=== PATIENT | male | born 1990 | race Caucasian/White ===

== ENCOUNTER 2016-07-24 02:03 | Observation (INO) ==
[2016-07-24] MEDS ORDERED: Ketorolac 30 MG/ML VIAL IVP ONE (03:34)
--- NOTE | 2016-07-24 03:41 | Emergency Department Note ---
Disposition Clinical Impression: Abdominal pain Qualifiers: Abdominal location: right lower quadrant Qualified Code(s): R10.31 - Right lower quadrant pain Disposition: Still a Patient Condition: Good Referrals: Allison Thompson CNP [Primary Care Provider] - Forms: Work/School Release, ED Satisfaction Letter Abdominal Pain HPI - General Chief Complaint: ED Abdominal Pain Stated Complaint: cholecystitis-was here Sat/abd pain Time Seen by Provider: 07/24/16 03:09 Source: patient Nursing Notes Reviewed: Yes Vital Signs Reviewed: Yes - History of Present Illness HPI Narrative: 25-year-old male smoker complains of right lower quadrant pain. He states he has been having this pain for some time, was actually evaluated earlier in the month and had a CT scan and was suggested to have a follow-up outpatient ultrasound. He had this 2 days ago and at the time of the imaging radiology had recommended that he be evaluated at the emergency department. He had a workup that time which resulted in a recommendation for a MRI and MRCP however patient had wanted to leave because he had to attend his dogs at home. He presents tonight with worsening pain. He mentions he has some chronic back pain today, but denies any bowel or bladder issues, weakness, numbness, tingling He states he is agreeable for further workup and treatment. He states he has a chronic history of pain which he is prescribed Suboxone 4. He denies any fevers , nausea, vomiting, constipation. Past surgical history includes appendectomy. Pain Scale: 9 - Related Data Home Medications Medication Instructions Recorded Confirmed Buprenorphine HCl/Naloxone HCl 1 each SL DAILY 07/24/16 07/24/16 [Suboxone 4 mg-1 mg Sl Film] Previous Rx's Medication Instructions Recorded CloNIDine [Catapres] 0.2 mg EP Q8H PRN #10 mls 06/23/15 Ketoprofen 75 mg PO TID PRN #20 capsule 07/16/16 Allergies Allergy/AdvReac Type Severity Reaction Status Date / Time Cyclobenzaprine Allergy Severe Hives Verified 07/24/16 02:25 [From Flexeril] All systems ED: reviewed and negative except as stated. Constitutional: Denies: fever, chills ENT ED: Denies: ear pain Cardiovascular: Denies: chest pain Respiratory: Denies: cough, dyspnea, wheezes Gastrointestinal: Reports: as per HPI. Denies: nausea, vomiting, diarrhea, constipation Abdominal Pain PMH - Past Medical History Medical history: Reports: other Male Surgical History: Reports: appendectomy Psychiatric history: Reports: anxiety, bipolar, depression - Social History Smoking status: Current every day smoker Alcohol use: Reports: none Drug use: Reports: none Physical Exam - General Limitations: no limitations General appearance: alert - Head Head exam: normocephalic - Eye Eye exam: Present: normal appearance, EOMI - ENT ENT exam: mucous membranes moist - Neck Neck exam: Present: full ROM - Chest Chest inspection: Present: symmetric chest wall rise - Respiratory Respiratory exam: Absent: respiratory distress - Cardiovascular Cardiovascular exam: Present: regular rate, normal rhythm - Abdominal Exam Abdominal exam: Present: soft, tenderness Abdominal tenderness: Present: RLQ - Extremities Exam Extremities exam: Present: normal inspection, full ROM, normal capillary refill - Back Exam Back exam: Present: full ROM - Neurological Exam Neurological exam: Present: alert - Psychiatric Psychiatric exam: Present: normal affect, normal mood - Skin Skin exam: Present: warm, dry, intact, normal color Course Course Narrative: Patient presents with right lower quadrant pain. He was evaluated 2 days ago, and there is a concern for a 7cm complex cystic appearing area on the right upper quadrant ultrasound. During that visit surgery was consulted, and there was a recommendation for an MRCP or MRI for further evaluation for possible cholecystitis versus abscess. However patient refused admission. He presents today with worsening pain and states he is agreeable for further treatment. Patient seen and examined. He is in no acute distress does not look toxic. Abdomen soft, no rigidity or rebound, patient complains of worsening pain on palpation to right lower and right upper quadrant. Patient does appear comfortable on exam bed texting on his phone. Medical records were reviewed. Patient had a right upper quadrant ultrasound on 07/22, as well as a CT abdomen on 07/16. Labwork from two days ago unremarkable with no elevation of liver enzymes, white count, or lipase. Vitals within normal limits today. Will repeat labwork and discuss with hospitalist to discuss admission for further workup MRI/MRCP. Analgesics antiemetics ordered. Discussed with Dr. Mccloud who agreed with work up and plan. - Reevaluation(s) Reevaluation #1: Discussed pt with Dr. Mccloud who had face time with patient and rec'd repeat CT but with contrast; He also agreed for admission and need for MRCP. Time: 04:29 Reevaluation #2: Discussed patient with hospitalist Dr. Tam who refused to accept patinet and states pt rec'd pt be admitted to surgery service. Surgery paged and I discussed pt with Dr. Croft who did not accept into service but advised pt needs MRCP. Time: 06:30 Reevaluation #3: I updated Dr. Mccloud on my discussion with hospitalists and surgery. At this time is at the end of my shift, and care of this patient will be transferred to day shift. Please see their further documentation for details. Report given. MRCP has been ordered. Patient has received analgesics. He is resting comfortably in exam bed. Vitals within normal limits. Time: 06:38 Vital Signs Temperature 98.6 F 07/24/16 02:21 Pulse Rate 120 07/24/16 02:21 Respiratory Rate 20 07/24/16 02:21 Blood Pressure 120/70 07/24/16 02:21 O2 Sat by Pulse Oximetry 98 07/24/16 02:21 Temperature 98.6 F 07/24/16 02:21 Pulse Rate 120 07/24/16 02:21 Respiratory Rate 20 07/24/16 02:21 Blood Pressure 120/70 07/24/16 02:21 O2 Sat by Pulse Oximetry 98 07/24/16 02:21 Oxygen Delivery Oxygen Delivery Room Air Abdominal Pain - Medical Records Medical records reviewed: Yes I reviewed the patient's medical records. - Lab Data Lab results reviewed: Yes I reviewed the patient's lab results. Result diagrams: 07/24/16 03:36 07/24/16 03:36 Lab Results 07/24/16 07/24/16 07/24/16 Range/Units 03:36 03:36 05:10 WBC 7.1 (4.3-11.1) K/mcL RBC 5.04 (4.19-5.50) M/mcL Hgb 13.6 (12.9-16.9) g/dL Hct 40.3 (37.5-50.1) % MCV 80.0 L (83.0-100.0) fL MCH 27.0 L (28.0-33.3) pg MCHC 33.7 (31.6-35.5) g/dL RDW 13.0 (11.5-14.5) % Plt Count 237 (140-400) K/mcL MPV 9.0 L (9.4-12.4) fL Immature Gran % 0.1 (0-4) % Seg Neutrophils % 37.2 % Lymphocytes % 52.4 % Monocytes % 7.3 % Eosinophils % 2.4 % Basophils % 0.6 % Neutrophils # 2.7 (1.6-8.9) K/mcL Lymphocytes # 3.7 (0.6-4.6) K/mcL Monocytes # 0.5 (0.0-1.3) K/mcL Eosinophils # 0.2 (0.0-0.6) K/mcL Basophils # 0.0 (0.0-0.2) K/mcL Sodium 137 (136-145) mEq/L Potassium 3.5 (3.5-4.5) mEq/L Chloride 101 (98-109) mEq/L Carbon Dioxide 27 (19-29) mEq/L BUN 8 (8-26) mg/dL Creatinine 0.74 (0.72-1.25) mg/dL Est GFR ( Amer) > 60 (> 60) Est GFR (Non-Af Amer) > 60 (> 60) BUN/Creatinine Ratio 11 (6-26) Glucose 93 (70-99) mg/dL Calculated Osmolality 282 (280-300) Calcium 9.3 (8.6-10.8) mg/dL Total Bilirubin 0.4 (0.2-1.2) mg/dL Direct Bilirubin 0.2 (0.0-0.5) mg/dL Indirect Bilirubin 0.2 (0.0-1.2) mg/dL AST 12 (5-34) Units/L ALT < 6 (0-55) Units/L Alkaline Phosphatase 97 (38-126) Units/L Serum Total Protein 7.4 (6.0-8.3) g/dL Albumin 3.2 L (3.5-5.0) g/dL Globulin 4.2 H (2.4-3.5) g/dL Albumin/Globulin Ratio 0.8 L (1.1-2.2) Lipase 22 (8-78) Units/L Urine Color Dark Yellow (Yellow) Urine Clarity Cloudy A (Clear) Urine pH 6.5 (5.0-8.0) pH Units Ur Specific [place] 1.020 (1.010-1.025) Urine Protein Trace (Neg-Trace) mg/dL Urine Glucose (UA) Normal (Normal) mg/dL Urine Ketones Negative (Negative) mg/dL Urine Blood Negative (Negative) Urine Nitrite Negative (Negative) Urine Bilirubin Negative (Negative) Urine Urobilinogen Normal (Normal) mg/dL Ur Leukocyte Esterase Negative (Negative) Urine Microscopic RBC 0-3 (0-3) per hpf Urine Microscopic WBC 0-3 (0-3) per hpf Ur Squamous Epith Cells Few (None-Few) per lpf Urine Bacteria Few (None-Few) per hpf Hyaline Casts None Seen (None-Few) per lpf Urine Mucus Few (Few) Ur Culture Indicated? NO (NO) Urine Opiates Screen (Rszxzg=505) ng/mL Ur Barbiturates Screen (Ztgeih=312) ng/mL Ur Phencyclidine Scrn (Cutoff=25) ng/mL Ur Amphetamines Screen (Qkuggh=9322) ng/mL U Benzodiazepines Scrn (Wybxtz=467) ng/mL Urine Cocaine Screen (Cutoff= 300) ng/mL U Marijuana (THC) Screen (Cutoff = 50) ng/mL 07/24/16 Range/Units 05:10 WBC (4.3-11.1) K/mcL RBC (4.19-5.50) M/mcL Hgb (12.9-16.9) g/dL Hct (37.5-50.1) % MCV (83.0-100.0) fL MCH (28.0-33.3) pg MCHC (31.6-35.5) g/dL RDW (11.5-14.5) % Plt Count (140-400) K/mcL MPV (9.4-12.4) fL Immature Gran % (0-4) % Seg Neutrophils % % Lymphocytes % % Monocytes % % Eosinophils % % Basophils % % Neutrophils # (1.6-8.9) K/mcL Lymphocytes # (0.6-4.6) K/mcL Monocytes # (0.0-1.3) K/mcL Eosinophils # (0.0-0.6) K/mcL Basophils # (0.0-0.2) K/mcL Sodium (136-145) mEq/L Potassium (3.5-4.5) mEq/L Chloride (98-109) mEq/L Carbon Dioxide (19-29) mEq/L BUN (8-26) mg/dL Creatinine (0.72-1.25) mg/dL Est GFR ( Amer) (> 60) Est GFR (Non-Af Amer) (> 60) BUN/Creatinine Ratio (6-26) Glucose (70-99) mg/dL Calculated Osmolality (280-300) Calcium (8.6-10.8) mg/dL Total Bilirubin (0.2-1.2) mg/dL Direct Bilirubin (0.0-0.5) mg/dL Indirect Bilirubin (0.0-1.2) mg/dL AST (5-34) Units/L ALT (0-55) Units/L Alkaline Phosphatase (38-126) Units/L Serum Total Protein (6.0-8.3) g/dL Albumin (3.5-5.0) g/dL Globulin (2.4-3.5) g/dL Albumin/Globulin Ratio (1.1-2.2) Lipase (8-78) Units/L Urine Color (Yellow) Urine Clarity (Clear) Urine pH (5.0-8.0) pH Units Ur Specific [place] (1.010-1.025) Urine Protein (Neg-Trace) mg/dL Urine Glucose (UA) (Normal) mg/dL Urine Ketones (Negative) mg/dL Urine Blood (Negative) Urine Nitrite (Negative) Urine Bilirubin (Negative) Urine Urobilinogen (Normal) mg/dL Ur Leukocyte Esterase (Negative) Urine Microscopic RBC (0-3) per hpf Urine Microscopic WBC (0-3) per hpf Ur Squamous Epith Cells (None-Few) per lpf Urine Bacteria (None-Few) per hpf Hyaline Casts (None-Few) per lpf Urine Mucus (Few) Ur Culture Indicated? (NO) Urine Opiates Screen Negative (Cbydxu=868) ng/mL Ur Barbiturates Screen Negative (Npelpv=790) ng/mL Ur Phencyclidine Scrn Negative (Cutoff=25) ng/mL Ur Amphetamines Screen Negative (Odezqb=1438) ng/mL U Benzodiazepines Scrn Positive H (Zbwwad=890) ng/mL Urine Cocaine Screen Negative (Cutoff= 300) ng/mL U Marijuana (THC) Screen Positive H (Cutoff = 50) ng/mL - Radiology Data Radiology results reviewed: Yes I reviewed the patient's radiology results. Attestation Statement - Attestation Attestation: For this encounter, I have reviewed the resident, TMD TEACHER ASSISTANT, or PA documentation, treatment plan, and medical decision making; and I have had face to face time with this patient. 25-year-old male presents with concerns of right upper quadrant and right lower quadrant abdominal pain. Patient was recently evaluated in the emergency department with a CT showing a possible cyst versus abscess near the gallbladder. A surgeon was consult regarding the patient's symptoms who recommended MRCP. The physician recommended admission to the hospital however the patient left AMA. Patient is now back stating that the pain is significantly worse. Patient denies fever, diarrhea, chest pain, shortness of breath, rash. Patient denies change of abdominal pain with by mouth intake. He states he has significantly worse pain with range of motion and ambulation. Repeat labs do not show elevation of the LFTs. Patient is afebrile. Abdominal CT shows a lobulated mass surrounding the gallbladder similar to the previous CT. Patient will be admitted to the hospital for continued care and evaluation.
[2016-07-24 03:43] LABS: Basophils % 0.6 %; Eosinophils # 0.2 K/mcL (0.0-0.6); Eosinophils % 2.4 %; Hematocrit 40.3 % (37.5-50.1); Hemoglobin 13.6 g/dL (12.9-16.9); Immature Granulocytes % 0.1 % (0-4); Lymphocytes # 3.7 K/mcL (0.6-4.6); Lymphocytes % 52.4 %; Mean Corpuscular HGB Conc 33.7 g/dL (31.6-35.5); Monocytes # 0.5 K/mcL (0.0-1.3); Monocytes % 7.3 %; Neutrophils # 2.7 K/mcL (1.6-8.9); Platelet Count 237 K/mcL (140-400); Red Blood Count 5.04 M/mcL (4.19-5.50); Segmented Neutrophils % 37.2 %
[2016-07-24 03:59] LABS: Albumin 3.2 g/dL (3.5-5.0); Albumin/Globulin Ratio 0.8 (1.1-2.2); Alkaline Phosphatase 97 Units/L (38-126); Aspartate Amino Transferase 12 Units/L (5-34); BUN/Creatinine Ratio 11 (6-26); Bilirubin,Direct 0.2 mg/dL (0.0-0.5); Bilirubin,Indirect 0.2 mg/dL (0.0-1.2); Bilirubin,Total 0.4 mg/dL (0.2-1.2); Blood Urea Nitrogen 8 mg/dL (8-26); Calcium 9.3 mg/dL (8.6-10.8); Carbon Dioxide 27 mEq/L (19-29); Chloride 101 mEq/L (98-109); Globulin 4.2 g/dL (2.4-3.5); Glucose 93 mg/dL (70-99); Lipase 22 Units/L (8-78); Osmolality,Calculated 282 (280-300); Potassium 3.5 mEq/L (3.5-4.5); Sodium 137 mEq/L (136-145); Total Protein 7.4 g/dL (6.0-8.3); eGFR For African Americans > 60 (> 60); eGFR For Non-African Americans > 60 (> 60)
[2016-07-24 04:04] LABS: Alanine Aminotransferase < 6 Units/L (0-55)
[2016-07-24] MEDS ORDERED: 0.9 % Sodium Chloride 1,000 ML IVC ONE (04:25)
[2016-07-24 05:20] LABS: Bilirubin,Urine Negative (Negative); Blood,Urine Negative (Negative); Clarity,Urine Cloudy (Clear); Color,Urine Dark Yellow (Yellow); Glucose,Urine (UA) Normal (Normal); Ketones,Urine Negative (Negative); Leukocyte Esterase,Urine Negative (Negative); Nitrite,Urine Negative (Negative); PH,Urine 6.5 pH Units (5.0-8.0); Protein,Urine Trace mg/dL (Neg-Trace); Urobilinogen,Urine Normal (Normal)
[2016-07-24 05:23] LABS: Hyaline Casts,Urine None Seen per lpf (None-Few); RBC,Urine 0-3 per hpf (0-3); Squamous Epithelial Cell,Urine Few per lpf (None-Few); WBC,Urine 0-3 per hpf (0-3)
[2016-07-24 05:27] LABS: Amphetamine Screen,Urine Negative ng/mL (Cutoff=1000); Barbiturate Screen,Urine Negative ng/mL (Cutoff=200); Benzodiazepines Screen,Urine Positive ng/mL (Cutoff=200); Cannabinoid Screen,Urine Positive ng/mL (Cutoff = 50); Cocaine Screen,Urine Negative ng/mL (Cutoff= 300); Opiate Screen,Urine Negative ng/mL (Cutoff=300); Phencyclidine Screen,Urine Negative ng/mL (Cutoff=25)
[2016-07-24 05:33] LABS: Bacteria,Urine Few per hpf (None-Few)
[2016-07-24 05:34] LABS: Mucus,Urine Few (Few)
[2016-07-24] MEDS ORDERED: *HR* HYDROmorphone (PF) 1 MG/ML SYRINGE IVP ONE ×2 (05:46→08:05)
[2016-07-24] MEDS ORDERED: *HR* LORazepam 2 MG/ML VIAL IVP ONE (06:57)
--- NOTE | 2016-07-24 08:12 | Emergency Department Note ---
Disposition Clinical Impression: Cholecystitis, unspecified Disposition: Admitted As Inpatient Condition: Good Time of Disposition: 09:46 Abdominal Pain HPI - General Chief Complaint: ED Abdominal Pain Stated Complaint: cholecystitis-was here Sat/abd pain Time Seen by Provider: 07/24/16 03:09 Source: patient Nursing Notes Reviewed: Yes Vital Signs Reviewed: Yes - History of Present Illness Pain Scale: 10 - Related Data Home Medications Medication Instructions Recorded Confirmed Buprenorphine HCl/Naloxone HCl 1 each SL DAILY 07/24/16 07/24/16 [Suboxone 4 mg-1 mg Sl Film] Previous Rx's Medication Instructions Recorded CloNIDine [Catapres] 0.2 mg EP Q8H PRN #10 mls 06/23/15 Ketoprofen 75 mg PO TID PRN #20 capsule 07/16/16 Allergies Allergy/AdvReac Type Severity Reaction Status Date / Time Cyclobenzaprine Allergy Severe Hives Verified 07/24/16 02:25 [From Flexeril] Constitutional: Denies: fever, chills ENT ED: Denies: ear pain Cardiovascular: Denies: chest pain Respiratory: Denies: cough, dyspnea, wheezes Gastrointestinal: Reports: as per HPI. Denies: nausea, vomiting, diarrhea, constipation Abdominal Pain PMH - Past Medical History Medical history: Reports: other Male Surgical History: Reports: appendectomy Psychiatric history: Reports: anxiety, bipolar, depression - Social History Smoking status: Current every day smoker Alcohol use: Reports: none Drug use: Reports: none Physical Exam - General Limitations: no limitations General appearance: alert Course Course Narrative: Care recieved from Dr Gonzalez. Pt returned from MRI complaining of pain. On exam he does have pain over his right upper and lower quadrant. Give patient a second dose of Dilaudid. He does chronically take Suboxone. He denies any nausea or vomiting at this time. He is requesting food believe informed him that he needs to wait to eat until we get the results from the MRI. - Reevaluation(s) Reevaluation #1: Patient found resting comfortably in bed. He was reaching over the side of his bed and stretching to pull out a notebook from a bag. He did not appear to be in any distress at that time. MRCP came back with findings compatible with acute cholecystitis with a thickened edematous appearance of the wall the gallbladder small fluid collection within the wall of the gallbladder cannot be excluded. We will contact Dr. Shrestha back at this time. Time: 08:22 Reevaluation #2: Dr. Shrestha admitted patient. Time: 09:15 Vital Signs Temperature 98.6 F 07/24/16 02:21 Pulse Rate 120 07/24/16 02:21 Respiratory Rate 20 07/24/16 02:21 Blood Pressure 120/70 07/24/16 02:21 O2 Sat by Pulse Oximetry 98 07/24/16 02:21 Temperature 98.6 F 07/24/16 02:21 Pulse Rate 77 07/24/16 09:23 Respiratory Rate 18 07/24/16 09:37 Blood Pressure 101/70 07/24/16 09:37 O2 Sat by Pulse Oximetry 98 07/24/16 09:23 Oxygen Delivery Oxygen Delivery Room Air Abdominal Pain - Lab Data Result diagrams: 07/24/16 03:36 07/24/16 03:36 Lab Results 07/24/16 07/24/16 07/24/16 Range/Units 03:36 03:36 05:10 WBC 7.1 (4.3-11.1) K/mcL RBC 5.04 (4.19-5.50) M/mcL Hgb 13.6 (12.9-16.9) g/dL Hct 40.3 (37.5-50.1) % MCV 80.0 L (83.0-100.0) fL MCH 27.0 L (28.0-33.3) pg MCHC 33.7 (31.6-35.5) g/dL RDW 13.0 (11.5-14.5) % Plt Count 237 (140-400) K/mcL MPV 9.0 L (9.4-12.4) fL Immature Gran % 0.1 (0-4) % Seg Neutrophils % 37.2 % Lymphocytes % 52.4 % Monocytes % 7.3 % Eosinophils % 2.4 % Basophils % 0.6 % Neutrophils # 2.7 (1.6-8.9) K/mcL Lymphocytes # 3.7 (0.6-4.6) K/mcL Monocytes # 0.5 (0.0-1.3) K/mcL Eosinophils # 0.2 (0.0-0.6) K/mcL Basophils # 0.0 (0.0-0.2) K/mcL Sodium 137 (136-145) mEq/L Potassium 3.5 (3.5-4.5) mEq/L Chloride 101 (98-109) mEq/L Carbon Dioxide 27 (19-29) mEq/L BUN 8 (8-26) mg/dL Creatinine 0.74 (0.72-1.25) mg/dL Est GFR ( Amer) > 60 (> 60) Est GFR (Non-Af Amer) > 60 (> 60) BUN/Creatinine Ratio 11 (6-26) Glucose 93 (70-99) mg/dL Calculated Osmolality 282 (280-300) Calcium 9.3 (8.6-10.8) mg/dL Total Bilirubin 0.4 (0.2-1.2) mg/dL Direct Bilirubin 0.2 (0.0-0.5) mg/dL Indirect Bilirubin 0.2 (0.0-1.2) mg/dL AST 12 (5-34) Units/L ALT < 6 (0-55) Units/L Alkaline Phosphatase 97 (38-126) Units/L Serum Total Protein 7.4 (6.0-8.3) g/dL Albumin 3.2 L (3.5-5.0) g/dL Globulin 4.2 H (2.4-3.5) g/dL Albumin/Globulin Ratio 0.8 L (1.1-2.2) Lipase 22 (8-78) Units/L Urine Color Dark Yellow (Yellow) Urine Clarity Cloudy A (Clear) Urine pH 6.5 (5.0-8.0) pH Units Ur Specific [place] 1.020 (1.010-1.025) Urine Protein Trace (Neg-Trace) mg/dL Urine Glucose (UA) Normal (Normal) mg/dL Urine Ketones Negative (Negative) mg/dL Urine Blood Negative (Negative) Urine Nitrite Negative (Negative) Urine Bilirubin Negative (Negative) Urine Urobilinogen Normal (Normal) mg/dL Ur Leukocyte Esterase Negative (Negative) Urine Microscopic RBC 0-3 (0-3) per hpf Urine Microscopic WBC 0-3 (0-3) per hpf Ur Squamous Epith Cells Few (None-Few) per lpf Urine Bacteria Few (None-Few) per hpf Hyaline Casts None Seen (None-Few) per lpf Urine Mucus Few (Few) Ur Culture Indicated? NO (NO) Urine Opiates Screen (Jqzvww=314) ng/mL Ur Barbiturates Screen (Oxjvvf=561) ng/mL Ur Phencyclidine Scrn (Cutoff=25) ng/mL Ur Amphetamines Screen (Hautci=4314) ng/mL U Benzodiazepines Scrn (Ngoija=080) ng/mL Urine Cocaine Screen (Cutoff= 300) ng/mL U Marijuana (THC) Screen (Cutoff = 50) ng/mL 07/24/16 Range/Units 05:10 WBC (4.3-11.1) K/mcL RBC (4.19-5.50) M/mcL Hgb (12.9-16.9) g/dL Hct (37.5-50.1) % MCV (83.0-100.0) fL MCH (28.0-33.3) pg MCHC (31.6-35.5) g/dL RDW (11.5-14.5) % Plt Count (140-400) K/mcL MPV (9.4-12.4) fL Immature Gran % (0-4) % Seg Neutrophils % % Lymphocytes % % Monocytes % % Eosinophils % % Basophils % % Neutrophils # (1.6-8.9) K/mcL Lymphocytes # (0.6-4.6) K/mcL Monocytes # (0.0-1.3) K/mcL Eosinophils # (0.0-0.6) K/mcL Basophils # (0.0-0.2) K/mcL Sodium (136-145) mEq/L Potassium (3.5-4.5) mEq/L Chloride (98-109) mEq/L Carbon Dioxide (19-29) mEq/L BUN (8-26) mg/dL Creatinine (0.72-1.25) mg/dL Est GFR ( Amer) (> 60) Est GFR (Non-Af Amer) (> 60) BUN/Creatinine Ratio (6-26) Glucose (70-99) mg/dL Calculated Osmolality (280-300) Calcium (8.6-10.8) mg/dL Total Bilirubin (0.2-1.2) mg/dL Direct Bilirubin (0.0-0.5) mg/dL Indirect Bilirubin (0.0-1.2) mg/dL AST (5-34) Units/L ALT (0-55) Units/L Alkaline Phosphatase (38-126) Units/L Serum Total Protein (6.0-8.3) g/dL Albumin (3.5-5.0) g/dL Globulin (2.4-3.5) g/dL Albumin/Globulin Ratio (1.1-2.2) Lipase (8-78) Units/L Urine Color (Yellow) Urine Clarity (Clear) Urine pH (5.0-8.0) pH Units Ur Specific [place] (1.010-1.025) Urine Protein (Neg-Trace) mg/dL Urine Glucose (UA) (Normal) mg/dL Urine Ketones (Negative) mg/dL Urine Blood (Negative) Urine Nitrite (Negative) Urine Bilirubin (Negative) Urine Urobilinogen (Normal) mg/dL Ur Leukocyte Esterase (Negative) Urine Microscopic RBC (0-3) per hpf Urine Microscopic WBC (0-3) per hpf Ur Squamous Epith Cells (None-Few) per lpf Urine Bacteria (None-Few) per hpf Hyaline Casts (None-Few) per lpf Urine Mucus (Few) Ur Culture Indicated? (NO) Urine Opiates Screen Negative (Isbqge=347) ng/mL Ur Barbiturates Screen Negative (Cszaxx=073) ng/mL Ur Phencyclidine Scrn Negative (Cutoff=25) ng/mL Ur Amphetamines Screen Negative (Darnlp=5637) ng/mL U Benzodiazepines Scrn Positive H (Dyhwku=611) ng/mL Urine Cocaine Screen Negative (Cutoff= 300) ng/mL U Marijuana (THC) Screen Positive H (Cutoff = 50) ng/mL
--- NOTE | 2016-07-24 08:46 | Emergency Department Note ---
Disposition Clinical Impression: Cholecystitis, unspecified Disposition: Admitted As Inpatient Condition: Fair Referrals: Allison Thompson CNP [Primary Care Provider] - Forms: ED Satisfaction Letter Time of Disposition: 09:08 General Adult HPI - General Stated complaint: cholecystitis-was here Sat/abd pain Time Seen by Provider: 07/24/16 03:09 Source: patient Limitations: no limitations - History of Present Illness Pain Scale: 10 - Related Data Home Medications Medication Instructions Recorded Confirmed Buprenorphine HCl/Naloxone HCl 1 each SL DAILY 07/24/16 07/24/16 [Suboxone 4 mg-1 mg Sl Film] Previous Rx's Medication Instructions Recorded CloNIDine [Catapres] 0.2 mg EP Q8H PRN #10 mls 06/23/15 Ketoprofen 75 mg PO TID PRN #20 capsule 07/16/16 Allergies Allergy/AdvReac Type Severity Reaction Status Date / Time Cyclobenzaprine Allergy Severe Hives Verified 07/24/16 02:25 [From Flexeril] Constitutional: Denies: fever, chills ENT ED: Denies: ear pain Cardiovascular: Denies: chest pain Respiratory: Denies: cough, dyspnea, wheezes Gastrointestinal: Reports: as per HPI. Denies: nausea, vomiting, diarrhea, constipation Past Medical History - Past Medical History Medical history: Reports: other Surgical history: Reports: no surgical history Psychiatric history: Reports: anxiety, bipolar, depression - Social History Smoking Status: Current every day smoker Smokeless Tobacco Status: No Alcohol use: Reports: none Drug use: Reports: none Physical Exam - General Limitations: no limitations General appearance: alert Course - Reevaluation(s) Reevaluation #1: I assumed care of the patient from the night physician at change of shift. I saw the patient with the resident, Dr. Lewis. Patient presented with right upper quadrant abdominal pain. Patient is tender to palpation. Vital signs are good. I reviewed the labs which were all normal. Consultation was made with general surgery in the night and it was recommended to get an MRCP. That MRCP has come back and is showing what appears to be acute cholecystitis. I went ahead and called the surgeon back. I spoke with Dr. Croft and explained to him the radiographic findings. He is calling the radiologist now to discuss the radiographic findings and will be calling me back to determine disposition. Time: 08:46 Reevaluation #2: Dr. Croft called back and we discussed the case. He is recommending admitting the patient to his service for cholecystitis. There appears to be an abscess so he is going to cool it down with antibiotics and consider putting a drain in place. I ordered Zosyn that he recommended. We will get the patient to the floor. Time: 09:07 Vital Signs Temperature 98.6 F 07/24/16 02:21 Pulse Rate 120 07/24/16 02:21 Respiratory Rate 20 07/24/16 02:21 Blood Pressure 120/70 07/24/16 02:21 O2 Sat by Pulse Oximetry 98 07/24/16 02:21 Temperature 98.6 F 07/24/16 02:21 Pulse Rate 89 07/24/16 07:59 Respiratory Rate 18 07/24/16 07:59 Blood Pressure 120/79 07/24/16 07:59 O2 Sat by Pulse Oximetry 97 07/24/16 07:59 Oxygen Delivery Oxygen Delivery Room Air Medical Decision Making - Lab Data Lab results reviewed: Yes I reviewed the patient's lab results. Result diagrams: 07/24/16 03:36 07/24/16 03:36 Lab Results 07/24/16 07/24/16 07/24/16 Range/Units 03:36 03:36 05:10 WBC 7.1 (4.3-11.1) K/mcL RBC 5.04 (4.19-5.50) M/mcL Hgb 13.6 (12.9-16.9) g/dL Hct 40.3 (37.5-50.1) % MCV 80.0 L (83.0-100.0) fL MCH 27.0 L (28.0-33.3) pg MCHC 33.7 (31.6-35.5) g/dL RDW 13.0 (11.5-14.5) % Plt Count 237 (140-400) K/mcL MPV 9.0 L (9.4-12.4) fL Immature Gran % 0.1 (0-4) % Seg Neutrophils % 37.2 % Lymphocytes % 52.4 % Monocytes % 7.3 % Eosinophils % 2.4 % Basophils % 0.6 % Neutrophils # 2.7 (1.6-8.9) K/mcL Lymphocytes # 3.7 (0.6-4.6) K/mcL Monocytes # 0.5 (0.0-1.3) K/mcL Eosinophils # 0.2 (0.0-0.6) K/mcL Basophils # 0.0 (0.0-0.2) K/mcL Sodium 137 (136-145) mEq/L Potassium 3.5 (3.5-4.5) mEq/L Chloride 101 (98-109) mEq/L Carbon Dioxide 27 (19-29) mEq/L BUN 8 (8-26) mg/dL Creatinine 0.74 (0.72-1.25) mg/dL Est GFR ( Amer) > 60 (> 60) Est GFR (Non-Af Amer) > 60 (> 60) BUN/Creatinine Ratio 11 (6-26) Glucose 93 (70-99) mg/dL Calculated Osmolality 282 (280-300) Calcium 9.3 (8.6-10.8) mg/dL Total Bilirubin 0.4 (0.2-1.2) mg/dL Direct Bilirubin 0.2 (0.0-0.5) mg/dL Indirect Bilirubin 0.2 (0.0-1.2) mg/dL AST 12 (5-34) Units/L ALT < 6 (0-55) Units/L Alkaline Phosphatase 97 (38-126) Units/L Serum Total Protein 7.4 (6.0-8.3) g/dL Albumin 3.2 L (3.5-5.0) g/dL Globulin 4.2 H (2.4-3.5) g/dL Albumin/Globulin Ratio 0.8 L (1.1-2.2) Lipase 22 (8-78) Units/L Urine Color Dark Yellow (Yellow) Urine Clarity Cloudy A (Clear) Urine pH 6.5 (5.0-8.0) pH Units Ur Specific Bowers 1.020 (1.010-1.025) Urine Protein Trace (Neg-Trace) mg/dL Urine Glucose (UA) Normal (Normal) mg/dL Urine Ketones Negative (Negative) mg/dL Urine Blood Negative (Negative) Urine Nitrite Negative (Negative) Urine Bilirubin Negative (Negative) Urine Urobilinogen Normal (Normal) mg/dL Ur Leukocyte Esterase Negative (Negative) Urine Microscopic RBC 0-3 (0-3) per hpf Urine Microscopic WBC 0-3 (0-3) per hpf Ur Squamous Epith Cells Few (None-Few) per lpf Urine Bacteria Few (None-Few) per hpf Hyaline Casts None Seen (None-Few) per lpf Urine Mucus Few (Few) Ur Culture Indicated? NO (NO) Urine Opiates Screen (Cfxhcr=574) ng/mL Ur Barbiturates Screen (Btshwc=136) ng/mL Ur Phencyclidine Scrn (Cutoff=25) ng/mL Ur Amphetamines Screen (Orxekl=8074) ng/mL U Benzodiazepines Scrn (Sshenq=664) ng/mL Urine Cocaine Screen (Cutoff= 300) ng/mL U Marijuana (THC) Screen (Cutoff = 50) ng/mL 07/24/16 Range/Units 05:10 WBC (4.3-11.1) K/mcL RBC (4.19-5.50) M/mcL Hgb (12.9-16.9) g/dL Hct (37.5-50.1) % MCV (83.0-100.0) fL MCH (28.0-33.3) pg MCHC (31.6-35.5) g/dL RDW (11.5-14.5) % Plt Count (140-400) K/mcL MPV (9.4-12.4) fL Immature Gran % (0-4) % Seg Neutrophils % % Lymphocytes % % Monocytes % % Eosinophils % % Basophils % % Neutrophils # (1.6-8.9) K/mcL Lymphocytes # (0.6-4.6) K/mcL Monocytes # (0.0-1.3) K/mcL Eosinophils # (0.0-0.6) K/mcL Basophils # (0.0-0.2) K/mcL Sodium (136-145) mEq/L Potassium (3.5-4.5) mEq/L Chloride (98-109) mEq/L Carbon Dioxide (19-29) mEq/L BUN (8-26) mg/dL Creatinine (0.72-1.25) mg/dL Est GFR ( Amer) (> 60) Est GFR (Non-Af Amer) (> 60) BUN/Creatinine Ratio (6-26) Glucose (70-99) mg/dL Calculated Osmolality (280-300) Calcium (8.6-10.8) mg/dL Total Bilirubin (0.2-1.2) mg/dL Direct Bilirubin (0.0-0.5) mg/dL Indirect Bilirubin (0.0-1.2) mg/dL AST (5-34) Units/L ALT (0-55) Units/L Alkaline Phosphatase (38-126) Units/L Serum Total Protein (6.0-8.3) g/dL Albumin (3.5-5.0) g/dL Globulin (2.4-3.5) g/dL Albumin/Globulin Ratio (1.1-2.2) Lipase (8-78) Units/L Urine Color (Yellow) Urine Clarity (Clear) Urine pH (5.0-8.0) pH Units Ur Specific Bowers (1.010-1.025) Urine Protein (Neg-Trace) mg/dL Urine Glucose (UA) (Normal) mg/dL Urine Ketones (Negative) mg/dL Urine Blood (Negative) Urine Nitrite (Negative) Urine Bilirubin (Negative) Urine Urobilinogen (Normal) mg/dL Ur Leukocyte Esterase (Negative) Urine Microscopic RBC (0-3) per hpf Urine Microscopic WBC (0-3) per hpf Ur Squamous Epith Cells (None-Few) per lpf Urine Bacteria (None-Few) per hpf Hyaline Casts (None-Few) per lpf Urine Mucus (Few) Ur Culture Indicated? (NO) Urine Opiates Screen Negative (Bebpjc=328) ng/mL Ur Barbiturates Screen Negative ([place]=543) ng/mL Ur Phencyclidine Scrn Negative (Cutoff=25) ng/mL Ur Amphetamines Screen Negative (Vppfzw=9875) ng/mL U Benzodiazepines Scrn Positive H (Qkmnxn=097) ng/mL Urine Cocaine Screen Negative (Cutoff= 300) ng/mL U Marijuana (THC) Screen Positive H (Cutoff = 50) ng/mL - Radiology Data Radiology results reviewed: Yes I reviewed the patient's radiology results.
[2016-07-24] MEDS ORDERED: Piperacillin/Tazobactam 3.375 GM in D5% in Water (Mini-Bag+) 100 ML IVPB ONE (09:05)
[2016-07-24 09:55] VITALS: BP 105/59
== END 2016-07-24 11:13 | disposition left against medical advice (07) ==
LOC: EMEROO 02:03 → 3ANU 02:03
PROVIDERS: ADMIT Surgery; ATTEND Surgery